=== PATIENT | female | born 1965 | race Caucasian/White ===

== ENCOUNTER → 2023-10-03 13:53 | Outpatient (REF) | payer OTHER, SELFPAY | LOC: WDC 13:53 | PROVIDERS: ATTENDING PHYSICIAN Obstetrics & Gynecology; FAMILY PHYSICIAN Family Medicine | DX: R92.2 Inconclusive mammogram (principal) | CPT/HCPCS: 76641 ==

== ENCOUNTER → 2024-04-17 13:23 | Outpatient (REF) | payer OTHER, SELFPAY | LOC: WDC 13:23 | PROVIDERS: ATTENDING PHYSICIAN Obstetrics & Gynecology; FAMILY PHYSICIAN Family Medicine | DX: Z12.31 Encounter for screening mammogram for malignant neoplasm of breast (principal) | CPT/HCPCS: 77063; 77067 ==

== ENCOUNTER → 2024-05-25 14:52 | Outpatient (REF) | payer OTHER, SELFPAY | LOC: WDC 14:52 | PROVIDERS: ATTENDING PHYSICIAN Obstetrics & Gynecology; FAMILY PHYSICIAN Family Medicine | DX: R92.8 Other abnormal and inconclusive findings on diagnostic imaging of breast (principal) | CPT/HCPCS: 76642 ==

== ENCOUNTER → 2025-04-20 14:25 | Outpatient (REF) | payer OTHER, SELFPAY | LOC: WDC 14:25 | PROVIDERS: ATTENDING PHYSICIAN Obstetrics & Gynecology; FAMILY PHYSICIAN Family Medicine | DX: Z12.31 Encounter for screening mammogram for malignant neoplasm of breast (principal) | CPT/HCPCS: 77063; 77067 ==

== ENCOUNTER → 2025-04-30 09:17 | Outpatient (REF) | payer OTHER, SELFPAY | LOC: WDC 09:17 | PROVIDERS: ATTENDING PHYSICIAN Obstetrics & Gynecology; FAMILY PHYSICIAN Family Medicine | DX: R92.8 Other abnormal and inconclusive findings on diagnostic imaging of breast (principal) | CPT/HCPCS: 76642 ==

== ENCOUNTER → 2025-05-03 10:33 | Outpatient (REF) | payer OTHER, SELFPAY ==
--- NOTE | 2025-05-03 13:19 | OID.BR.INTR ---
[facility] Breast Navigator - Initial
- -
Date of Contact: 05/03/25
Met with patient. Patient given written information on navigator service available at [facility]. Will follow up as needed per protocol.
== END ==
LOC: WDC 10:33
PROVIDERS: ATTENDING PHYSICIAN Obstetrics & Gynecology; FAMILY PHYSICIAN Family Medicine
DX: N63.11 Unspecified lump in the right breast, upper outer quadrant (principal)
CPT/HCPCS: 19083; 88305; 88341; 88342; 88360; A4648

== ENCOUNTER → 2025-05-19 14:47 | Outpatient (REF) | payer OTHER, SELFPAY | LOC: WDC 14:47 | PROVIDERS: ATTENDING PHYSICIAN Surgery; FAMILY PHYSICIAN Family Medicine | DX: R92.30 Dense breasts, unspecified (principal) | CPT/HCPCS: 76641 ==

== ENCOUNTER → 2025-06-14 08:26 | Outpatient (REF) | payer OTHER, SELFPAY | LOC: WDC 08:26 | PROVIDERS: ATTENDING PHYSICIAN Surgery | DX: C50.411 Malignant neoplasm of upper-outer quadrant of right female breast (principal) | CPT/HCPCS: 19285; 38792; 76942; A4648; A9541 ==

== ENCOUNTER 2025-06-15 06:16 | Day surgery (SDC) | payer OTHER, SELFPAY ==
[2025-06-04 08:58] LABS: Hematocrit 43.4 % (37.0-47.0); Hemoglobin 14.6 g/dL (12.0-16.0); Mean Corp Hgb Conc. 33.6 g/dL (33.0-37.0); Mean Corpuscular Volume 92.7 fL (81.0-99.0); Nucleated Red Blood Cells % 0 %; Platelet Count 241 10^3/uL (130-400); Red Cell Dist. Width 12.4 % (11.5-14.5)
[2025-06-04 09:18] LABS: ALT (SGPT) 44 U/L (0-35); AST (SGOT) 29 U/L (14-36); Albumin 4.9 g/dl (3.5-5.0); Alkaline Phosphatase 61 U/L (38-126); Blood Urea Nitrogen 17 mg/dl (7-17); Calcium 10.0 mg/dl (8.4-10.2); Carbon Dioxide 31 mmol/L (22-30); Chloride 102 mmol/L (98-107); Glucose 87 mg/dl (70-99); Potassium 4.7 mmol/L (3.5-5.1); Sodium 138 mmol/L (135-145); Total Protein 7.5 g/dl (6.3-8.2); eGFR > 60.00
[2025-06-04 09:28] LABS: Prealbumin (Transthyretin) 29.1 mg/dl (17.6-36.0)
[2025-06-04 09:41] LABS: Vitamin D, 25-OH*** 39.0 ng/mL (30-80)
[2025-06-04 14:00] VITALS: BMI 22.3
[2025-06-15] VITALS (7 sets, daily range): BP systolic 99–114; BP diastolic 38–68; BMI 22.3
[2025-06-15] MEDS: TYLENOL 1000 MG PO (08:34)
[2025-06-15] MEDS: LOVENOX 40 MG SC (08:48)
[2025-06-15] MEDS: NORMOSOL-R/PLASMALYTE-A 1000 IV (08:49)
--- NOTE | 2025-06-15 11:38 | W.IMMPOSTOP ---
Surgical Immed Post Op Note
-
Primary Surgeon: Allison
Assisting Surgeon: None
Pre-op Diagnosis: Right breast ca
Post-op Diagnosis: right breast ca
Procedure Performed: right localized lumpectomy and sentinel lymph node mapping and biopsy
Anesthesia Type: TIVA
Specimen / Cultures: Right lumpectomy, sentinel nodes, margins
Estimated Blood Loss: 6cc
Complications: None
Operative Findings: clip and reflector in specimen
--- NOTE | 2025-06-15 12:44 | OR.RPT ---
Operative Report
Operative Report
Date of procedure: 06/15/2025
Procedure: Right localized lumpectomy sentinel lymph node mapping and biopsy
Surgeon: Allison
Preoperative diagnosis right breast carcinoma
Postoperative diagnosis: Right breast carcinoma new
Patient is a 60-year-old female who presented with image detected favorable early-stage right breast carcinoma presents for breast conservation surgery. On the day prior to the procedure she presented to the [place] [facility] where [facility]
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 On the day of the procedure she presented to the same-day surgical services unit. She verified signs procedure and was prepped. DVT
and antibiotic prophylaxis were provided. She was transferred to the operating room and in the supine position intravenous sedation was delivered. The right breast and axilla were prepped and draped in usual sterile fashion and all team members
performed an appropriate timeout procedure.
All tissues were anesthetized with 1% lidocaine plain. Attention was first turned to the axilla where a curvilinear incision was made inferior to the hairline overlying the area of highest external gamma count. Dissection was carried through
clavipectoral fascia using the cautery and using the neoprobe gamma probe, 2 sentinel node packets were encountered and excised. Feeding vessels to the nodes were controlled with 3-0 silk tie. After the removal there was a greater than fourfold
reduction of background count. Hemostasis was verified and Marcaine 0.5% plain was instilled into all tissues. This wound was closed using simple interrupted 3-0 plain on deep intermediate and subcutaneous tissue and skin was closed using a
running subcuticular 4-O Biosyn.
Then attention was turned to the lumpectomy. A superior circumareolar incision was made sharply with the blade. The oncoplastic plane was entered and elevated using the cautery and a lighted retractor. A wide lumpectomy using the Elizabeth probe to
target the appropriate area was made using the cautery. Time out of body was noted and the specimen was oriented for the pathologist. Specimen radiography confirmed the presence of the clip and reflector within it. Additional margins were
harvested for permanent analysis from the posterior, medial, superior, lateral, inferior, and anterior dimensions. These were oriented and sent under separate cover. Hemostasis was verified. Marcaine 0.5% plain was instilled into all tissues and
hemoclips were placed in the resection cavity. This wound was closed in the same manner as the axilla. Surgical glue and sterile compressive dressings were applied. All sponge needle and instrument counts were correct and the patient was
transferred to the recovery room in stable condition
([id number])
[place] Node Bx Breast Cancer
[place] Node Bx Breast Cancer
Operation performed with curative intent: Yes
Tracer(s) to ID [place] Nodes in Non-Neoadjuvant setting: Radioactive Tracer
Tracer(s) to ID [place] Nodes in the Neoadjuvant Setting: N/A
All nodes at end of dye-filled Lymphatic Channel removed: N/A
All Significantly Radioactive Nodes were removed: Yes
All Palpably Suspicious Nodes were Removed: Yes
== END 2025-06-15 12:05 | disposition home or self-care (01) ==
LOC: SDS 06:16
PROVIDERS: ATTENDING PHYSICIAN Surgery; FAMILY PHYSICIAN Family Medicine
DX: D05.11 Intraductal carcinoma in situ of right breast (principal)
CPT/HCPCS: 38525; 36415; 76098; 80053; 82306; 84134; 85025; 88305; 88307; 88342; 93005